=== PATIENT | male | born 1935 | race Caucasian/White ===

== ENCOUNTER 2024-09-17 10:49 | Emergency (ER) | payer OTHER ==
[~2024-09-17] VITALS: Ht 182.9 cm; Wt 90.7 kg
[2024-09-17 10:52] VITALS: O2SAT 0
== END 2024-09-17 14:40 ==
LOC: ER 10:49
DX: I46.9 Cardiac arrest, cause unspecified (principal)
CPT/HCPCS: A4606; A4663